=== PATIENT | male | born 1970 | race Caucasian/White ===

== ENCOUNTER 2024-02-17 20:54 | Inpatient (IN) | payer OTHER ==
[2024-02-17 21:15] VITALS: BMI 36.3
[2024-02-17] MEDS: Morphine 4 MG/ML VIAL SLOW IVP PRN (21:42)
[2024-02-17] MEDS: Morphine 4 MG/ML VIAL ONE (21:43)
[2024-02-17] MEDS ORDERED: Acetaminophen 650 MG Suppository PR PRN (22:01)
[2024-02-17] MEDS ORDERED: Acetaminophen 325 MG TAB PO PRN (22:01)
[2024-02-17] MEDS ORDERED: Ondansetron ODT 4 MG TAB PO PRN (22:01)
[2024-02-17] MEDS ORDERED: Ondansetron PF 4 MG/2 ML Vial IVP PRN (22:01)
[2024-02-18] MEDS: Nitroglycerin 0.4 MG TAB (25 Tab Bottle) SL PRN (03:47)
[2024-02-18 03:53] LABS: #Basophils Less than 0.03 10x3/uL (0.0-0.2); %Basophils 0.1 % (0.0-1.0); %Eosinophils 2.8 % (0.0-10.0); %Lymphocytes 16.5 % (21.0-51.0); %Monocytes 9.5 % (0.0-10.0); %Neutrophils 70.4 % (42.0-75.0); Hematocrit 37.2 % (42.0-52.0); Mean Corpuscular HGB CONC 34.9 g/dL (32.0-36.0); Mean Corpuscular Hemoglobin 28.7 pg (27.0-31.0); Mean Corpuscular Volume 82.1 fL (78.0-98.0); Mean Platelet Volume 9.1 fL (7.4-10.4); Platelet Count 217 10x3/uL (130-400); RBC Distribution Width 11.9 % (11.5-14.5); Red Blood Cell (RBC) Count 4.53 mill/uL (4.70-6.10)
[2024-02-18 04:13] LABS: Anion Gap 14 mmol/L (10-20); BUN (Urea Nitrogen) 13 mg/dL (8.4-25.7); Calc. Creatinine Clearance 157 mL/min (70-130); Calcium 8.9 mg/dL (7.8-10.44); Carbon Dioxide 21 mmol/L (22-29); Chloride 106 mmol/L (98-107); Estimated GFR 105; Glucose 106 mg/dL (70-105); Sodium 137 mmol/L (136-145)
[2024-02-18 07:21] LABS: Troponin I 2.062 ng/mL (< 0.028)
[2024-02-18] MEDS: Aspirin 81 mg Enteric Coated Tablet PO SCH (08:12)
[2024-02-18] MEDS: Sodium Chloride 0.9% 1,000 ML IV SCH (08:51)
[2024-02-18 08:55] LABS: Cardiac Risk 3.8 (Less than 4.5)
[2024-02-18 08:56] LABS: Acetaminophen Less than 10 mcg/mL (10.0-30.0); Alcohol Less than 10.0 mg/dL (Less than 10); Salicylate Less than 8.0 mg/dL (15.0-30.0)
[2024-02-18] MEDS: Enoxaparin 100 MG (1 mL) SYRINGE SC SCH ×3 (09:30→20:52)
[2024-02-18] MEDS ORDERED: Nitroglycerin 2% Ointment 1 INCH/1 GM Packet TOP SCH (14:00)
[2024-02-18] MEDS ORDERED: Communication Order-Pharmacy FS SCH (14:00)
[2024-02-18] MEDS: Terazosin HCl 5 MG CAP PO SCH (14:24)
[2024-02-18] MEDS: Metoprolol Tartrate 25 MG TAB PO SCH ×2 (14:24→20:52)
[2024-02-18 17:11] LABS: Amphetamine Not Detected (NotDetected); Barbiturates Screen Not Detected (NotDetected); Benzodiazepine Screen Not Detected (NotDetected); Cocaine Metabolite Screen Not Detected (NotDetected); Methadone Not Detected (NotDetected); Methamphetamine Not Detected (NotDetected); Opiate Screen Detected (NotDetected); Oxycodone Screen Not Detected (NotDetected); Phencyclidine (PCP) Not Detected (NotDetected); THC/Cannabinoid Screen Not Detected (NotDetected); Tricyclic Screen Not Detected (NotDetected)
[2024-02-18] MEDS: Nitroglycerin 2% Ointment 1 INCH/1 GM Packet TOP SCH (17:48)
[2024-02-18] MEDS: Atorvastatin Calcium 40 MG TAB PO SCH (20:52)
[2024-02-19 04:15] LABS: #Basophils Less than 0.03 10x3/uL (0.0-0.2); %Basophils 0.2 % (0.0-1.0); %Eosinophils 3.1 % (0.0-10.0); %Lymphocytes 14.6 % (21.0-51.0); %Monocytes 8.7 % (0.0-10.0); %Neutrophils 72.9 % (42.0-75.0); Hematocrit 38.9 % (42.0-52.0); Hemoglobin 13.5 g/dL (14.0-18.0); Mean Corpuscular HGB CONC 34.7 g/dL (32.0-36.0); Mean Corpuscular Hemoglobin 29.2 pg (27.0-31.0); Mean Platelet Volume 9.4 fL (7.4-10.4); Platelet Count 216 10x3/uL (130-400); RBC Distribution Width 11.9 % (11.5-14.5); Red Blood Cell (RBC) Count 4.63 mill/uL (4.70-6.10)
[2024-02-19 04:35] LABS: Anion Gap 14 mmol/L (10-20); BUN (Urea Nitrogen) 16 mg/dL (8.4-25.7); Calc. Creatinine Clearance 153 mL/min (70-130); Calcium 8.9 mg/dL (7.8-10.44); Carbon Dioxide 21 mmol/L (22-29); Chloride 107 mmol/L (98-107); Estimated GFR 104; Glucose 94 mg/dL (70-105); Potassium 4.1 mmol/L (3.5-5.1); Sodium 138 mmol/L (136-145)
[2024-02-19] MEDS: Terazosin HCl 5 MG CAP PO SCH (08:32)
[2024-02-19] MEDS: lamoTRIgine 100 MG TAB PO SCH (08:32)
[2024-02-19] MEDS: DULoxetine 60 MG CAP PO SCH (08:32)
[2024-02-19] MEDS: risperiDONE 3 MG TAB PO SCH (08:32)
[2024-02-19 15:07] LABS: Troponin I 0.968 ng/mL (< 0.028)
[2024-02-20 05:47] LABS: #Basophils Less than 0.03 10x3/uL (0.0-0.2); %Basophils 0.3 % (0.0-1.0); %Eosinophils 3.6 % (0.0-10.0); %Monocytes 10.7 % (0.0-10.0); %Neutrophils 67.9 % (42.0-75.0); Hematocrit 40.8 % (42.0-52.0); Hemoglobin 14.4 g/dL (14.0-18.0); Mean Corpuscular HGB CONC 35.3 g/dL (32.0-36.0); Mean Corpuscular Hemoglobin 28.9 pg (27.0-31.0); Mean Corpuscular Volume 81.8 fL (78.0-98.0); Mean Platelet Volume 9.6 fL (7.4-10.4); Platelet Count 244 10x3/uL (130-400); RBC Distribution Width 11.9 % (11.5-14.5); Red Blood Cell (RBC) Count 4.99 mill/uL (4.70-6.10)
[2024-02-20 06:07] LABS: Anion Gap 14 mmol/L (10-20); BUN (Urea Nitrogen) 18 mg/dL (8.4-25.7); Calc. Creatinine Clearance 163 mL/min (70-130); Calcium 9.3 mg/dL (7.8-10.44); Carbon Dioxide 23 mmol/L (22-29); Chloride 104 mmol/L (98-107); Estimated GFR 106; Glucose 101 mg/dL (70-105); Potassium 4.2 mmol/L (3.5-5.1); Sodium 137 mmol/L (136-145)
[2024-02-20] MEDS: Sodium Chloride 0.9% 1,000 ML IV SCH ×2 (06:32→14:06)
[2024-02-20] MEDS ORDERED: Heparin 10,000 UNITS/ 10 ML VIAL ONE (08:15)
[2024-02-20] MEDS ORDERED: Nitroglycerin 50 MG/250 ML BOT 250 ML ONE (08:16)
[2024-02-20] MEDS ORDERED: fentaNYL 50 mcg/mL 1 mL Vial ONE (09:11)
[2024-02-20] MEDS ORDERED: Midazolam HCl 2 mg/2 ml Vial ONE (09:11)
[2024-02-20] MEDS ORDERED: Atropine Sulfate 1 mg/1 ml Vial ONE (09:33)
[2024-02-20] MEDS ORDERED: PHENYLEPHRINE-NS 100 MCG/ML 10 ML SYRINGE ONE (09:33)
[2024-02-20] MEDS ORDERED: Clopidogrel Bisulfate 300 MG TAB ONE (09:38)
[2024-02-20] MEDS ORDERED: Ondansetron PF 4 MG/2 ML Vial ONE (09:47)
[2024-02-20] MEDS ORDERED: Iopamidol 370 76% 100 ML VIAL ONE (10:42)
[2024-02-20] MEDS ORDERED: Morphine 4 MG/ML VIAL ONE (12:10)
[2024-02-20] MEDS ORDERED: Mag-Al 1200 mg/1200 mg/30 ML UDCUP ONE (12:23)
[2024-02-21 05:32] LABS: #Basophils Less than 0.03 10x3/uL (0.0-0.2); %Basophils 0.1 % (0.0-1.0); %Eosinophils 3.7 % (0.0-10.0); %Neutrophils 72.7 % (42.0-75.0); Hematocrit 40.7 % (42.0-52.0); Hemoglobin 14.1 g/dL (14.0-18.0); Mean Corpuscular HGB CONC 34.6 g/dL (32.0-36.0); Mean Corpuscular Hemoglobin 28.7 pg (27.0-31.0); Mean Corpuscular Volume 82.7 fL (78.0-98.0); Mean Platelet Volume 9.2 fL (7.4-10.4); Platelet Count 246 10x3/uL (130-400); RBC Distribution Width 11.9 % (11.5-14.5); Red Blood Cell (RBC) Count 4.92 mill/uL (4.70-6.10)
[2024-02-21 05:54] LABS: ALT (SGPT) 64 U/L (8-55); AST (SGOT) 49 U/L (5-34); Albumin 3.8 g/dL (3.5-5.0); Alkaline Phosphatase 57 U/L (40-110); Anion Gap 13 mmol/L (10-20); BUN (Urea Nitrogen) 20 mg/dL (8.4-25.7); Bilirubin, Total 0.4 mg/dL (0.2-1.2); Calc. Creatinine Clearance 151 mL/min (70-130); Calcium 9.2 mg/dL (7.8-10.44); Carbon Dioxide 23 mmol/L (22-29); Chloride 106 mmol/L (98-107); Estimated GFR 104; Globulin 2.7 g/dL (2.4-3.5); Glucose 116 mg/dL (70-105); Potassium 4.2 mmol/L (3.5-5.1); Protein, Total 6.5 g/dL (6.0-8.3); Sodium 138 mmol/L (136-145)
[2024-02-21] MEDS: Clopidogrel Bisulfate 75 MG TAB PO SCH (08:52)
[2024-02-21 15:43] VITALS: BP 137/75; TEMP 97.9
== END 2024-02-21 18:30 | DRG 322 ==
LOC: EEVIPCON 20:54 → 2NO 20:54 → INTOOBSV 20:54 → OBSVTOIN 02-18 12:48
PROVIDERS: ADMIT Student in an Organized Health Care Education/Training Program; ATTEND Internal Medicine
PROC: 027035Z Dilation of Coronary Artery, One Artery with Two Drug-eluting Intraluminal Devices, Percutaneous Approach (ICD-10-PCS; principal; 2024-02-20)
PROC: 4A023N7 Measurement of Cardiac Sampling and Pressure, Left Heart, Percutaneous Approach (ICD-10-PCS; 2024-02-20)
PROC: B2151ZZ Fluoroscopy of Left Heart using Low Osmolar Contrast (ICD-10-PCS; 2024-02-20)
PROC: B2111ZZ Fluoroscopy of Multiple Coronary Arteries using Low Osmolar Contrast (ICD-10-PCS; 2024-02-20)
DX: I21.4 Non-ST elevation (NSTEMI) myocardial infarction (principal); I10 Essential (primary) hypertension; E66.9 Obesity, unspecified; G40.909 Epilepsy, unspecified, not intractable, without status epilepticus; E78.00 Pure hypercholesterolemia, unspecified; Z88.8 Allergy status to other drugs, medicaments and biological substances; Z79.899 Other long term (current) drug therapy; Z90.89 Acquired absence of other organs; Z68.36 Body mass index [BMI] 36.0-36.9, adult; Z71.3 Dietary counseling and surveillance
CPT/HCPCS: 36415; 71045; 80048; 80053; 80061; 80306; 80307; 84484; 85025; 85347; 92928; 93005; 93010; 93306; 93458; 93798; 96372; 96374; 96375; 96376; 99152; 99153; C1725; C1769; C1874; C1887; C9600; J0461; J1644; J1650; J2250; J2270; J2405; J3010; J7050